=== PATIENT | female | born 1935 | race Caucasian/White ===

== ENCOUNTER 2021-05-14 10:16 | Emergency (ER) | payer OTHER, MEDICARE ==
[2021-05-14 10:48] VITALS: BP 147/71; PULSE 100; TEMP 98.9; BMI 21.0
== END 2021-05-14 11:36 | disposition home or self-care (01) ==
LOC: FER 10:16
DX: R33.9 Retention of urine, unspecified (principal)
CPT/HCPCS: 99283-25

== ENCOUNTER 2021-05-27 09:48 | Emergency (ER) | payer OTHER, MEDICARE ==
[2021-05-27 10:04] VITALS: BP 169/78; PULSE 82; TEMP 98.2; BMI 20.8
[2021-05-27 11:05] LABS: EPITHELIAL CELLS FEW /hpf
== END 2021-05-27 10:36 | disposition home or self-care (01) ==
LOC: FER 09:48
DX: Z46.6 Encounter for fitting and adjustment of urinary device (principal)
CPT/HCPCS: 81003; 81015; 87086; 87186; 99283-25

== ENCOUNTER 2021-07-01 23:31 | Emergency (ER) | payer OTHER, MEDICARE ==
[2021-07-02 00:39] VITALS: BP 166/73; PULSE 76; TEMP 98.4; BMI 22.6
== END 2021-07-02 00:39 | disposition home or self-care (01) ==
LOC: FER 23:31
DX: T83.098A Other mechanical complication of other urinary catheter, initial encounter (principal)
CPT/HCPCS: 99282-25